=== PATIENT | male | born 1990 | race Caucasian/White ===

== ENCOUNTER 2019-04-03 15:29 | Emergency (ER) | payer MEDICAID ==
[~2019-04-03] VITALS: Ht 190.5 cm; Wt 84.0 kg
[~2019-04-03 15:29] MED LIST: BUPR100T11 PO; HYDR-826 PO; HYDR10TA4 PO; No meds per pt.
[2019-04-03 15:39] VITALS: BP 158/76
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
[2019-04-03] MEDS ORDERED: NEOSPORIN OINT. PKT 1 PACKET ONE (15:59)
[2019-04-03] MEDS ORDERED: DIPH,PERTUSS(ACELL),TET VAC/PF 0.5 ML IM-VACC ONE ×2 (15:59→16:00)
== END 2019-04-03 16:55 | disposition home or self-care (01) ==
LOC: ED 16:45
DX: S61.512A Laceration without foreign body of left wrist, initial encounter (principal); S60.221A Contusion of right hand, initial encounter; W26.0XXA Contact with knife, initial encounter; Y93.89 Activity, other specified; Y92.009 Unspecified place in unspecified non-institutional (private) residence as the place of occurrence of the external cause; Y99.8 Other external cause status
CPT/HCPCS: 90715; 99283

== ENCOUNTER 2019-04-06 03:23 | Emergency (ER) | payer MEDICAID ==
[~2019-04-06] VITALS: Ht 190.5 cm; Wt 85.0 kg
--- NOTE | 2019-04-06 03:27 | NUR ---
PT NOT IN LOBBY WHEN CALLED
[2019-04-06 03:31] VITALS: BP 119/71
== END 2019-04-06 04:37 | disposition home or self-care (01) ==
LOC: ED 04:30
DX: S61.401A Unspecified open wound of right hand, initial encounter (principal); X58.XXXA Exposure to other specified factors, initial encounter; Y93.89 Activity, other specified; Y92.89 Other specified places as the place of occurrence of the external cause; Y99.8 Other external cause status; F17.200 Nicotine dependence, unspecified, uncomplicated
CPT/HCPCS: 99283

== ENCOUNTER 2019-05-16 02:26 | Emergency (ER) | payer MEDICAID ==
[~2019-05-16] VITALS: Ht 188 cm; Wt 97.7 kg
[2019-05-16 02:29] VITALS: BP 138/78
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
--- NOTE | 2019-05-16 04:26 | NUR ---
Pt dc'd to self care. Pt alert and ambulatory. NAD. Education given on follow-up, home care and S/Sx to return. Pt ambulated out of ER.
== END 2019-05-16 04:28 | disposition home or self-care (01) ==
LOC: ED 04:22
DX: Z20.2 Contact with and (suspected) exposure to infections with a predominantly sexual mode of transmission (principal)
CPT/HCPCS: 36415; 86592; 86705; 86706; 86803; 87340; 87491; 87591; 87806; 99283; G0475

== ENCOUNTER 2019-05-22 01:24 | Emergency (ER) | payer MEDICAID ==
[~2019-05-22] VITALS: Ht 190.5 cm; Wt 84.9 kg
[2019-05-22 01:31] VITALS: BP 127/83
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
--- NOTE | 2019-05-22 01:50 | NUR ---
erp at bed side imaging will be taken
--- NOTE | 2019-05-22 02:52 | NUR ---
pt will be dc'd
--- NOTE | 2019-05-22 03:05 | NUR ---
dr rios was in rm given poc pt understood given dc instruction pt up ambulated to check out
== END 2019-05-22 03:15 | disposition home or self-care (01) ==
LOC: ED 01:52
DX: S93.492A Sprain of other ligament of left ankle, initial encounter (principal); F90.9 Attention-deficit hyperactivity disorder, unspecified type; F17.200 Nicotine dependence, unspecified, uncomplicated; Z72.9 Problem related to lifestyle, unspecified; X50.1XXA Overexertion from prolonged static or awkward postures, initial encounter; Y93.01 Activity, walking, marching and hiking; Y92.488 Other paved roadways as the place of occurrence of the external cause; Y99.8 Other external cause status
CPT/HCPCS: 99283

== ENCOUNTER 2020-06-18 10:41 | Emergency (ER) | payer MEDICAID ==
[~2020-06-18 10:41] MED LIST changes: +HYDR-2995 PO; -HYDR10TA4 PO
--- NOTE | 2020-06-18 10:54 | NUR ---
PER REGISTRATION/SECURITY. PATIENT CHECKED IN WITH REGISTRATION, USED RESTROOM, THEN GATHERED BELONGINGS AND WALKED OUT ER ENTRANCE/EXIT. ENGINEERING ANALYST MADE AWARE-TAKEN OUT OF SYSTEM LEFT WITHOUT BEING SEEN
== END 2020-06-18 10:57 | disposition left against medical advice (07) ==
LOC: ED 10:51
DX: R31.9 Hematuria, unspecified (principal); Z53.21 Procedure and treatment not carried out due to patient leaving prior to being seen by health care provider

== ENCOUNTER 2020-07-11 08:02 | Emergency (ER) | payer MEDICAID ==
[~2020-07-11] VITALS: Ht 190.5 cm; Wt 82.4 kg
[2020-07-11 08:09] VITALS: BP 114/81
[2020-07-11] MEDS ORDERED: NEOSPORIN OINT. PKT 1 PACKET ONE ×2 (09:14→09:15)
--- NOTE | 2020-07-11 09:21 | NUR ---
BILATERAL FEET CLEANED. ABX OINTMENT APPLIED TO OPEN BLISTERS AND COVERED WITH BANDAIDS. PT TOLERATED WELL. FOOD TRAY AND CLEAN SOCKS PROVIDED WELL.
== END 2020-07-11 09:48 | disposition home or self-care (01) ==
LOC: ED 09:45
DX: S91.331D Puncture wound without foreign body, right foot, subsequent encounter (principal); F31.9 Bipolar disorder, unspecified; F17.290 Nicotine dependence, other tobacco product, uncomplicated; Z72.9 Problem related to lifestyle, unspecified; Z59.0 Homelessness; X58.XXXD Exposure to other specified factors, subsequent encounter
CPT/HCPCS: 99281

== ENCOUNTER 2020-07-12 03:55 | Emergency (ER) | payer MEDICAID ==
[~2020-07-12] VITALS: Ht 190.5 cm; Wt 85.8 kg
[2020-07-12 03:56] VITALS: BP 141/89
--- NOTE | 2020-07-12 04:57 | NUR ---
PT REFUSING TO LEAVE ED AT TIME OF D/C. PT CONTINUALLY STATING "I NEED TO SEE MY DOCTOR AGAIN, I JUST REMEMBERED I HAVE A LOT OF OTHER THINGS GOING ON AND I NEED TO JUST SIT AND STAY HERE FOR LONGER. I AM NOT GETTING OUT OF THIS BED UNTIL THE DOCTOR COMES BACK AND I CAN TELL HIM ALL THE OTHER THINGS I HAVE GOING ON". PT GIVEN D/C INSTRUCTIONS AND PRESCRIPTION AND VERBALIZED UNDERSTANDING. AT THIS TIME PT STATES "OK FINE, I WILL JUST COME BACK IN 1 HOUR FOR THE SAME THING. DONT WORRY ILL CHECK RIGHT BACK INTO THIS ER, JUST LIKE THIS TIME." PT CONTINUES TO REFUSE TO LEAVE ED AND ROOM. AFTER THIS RN RN ATTEMPT TO D/C PT FROM ED, SECOND RN MOSES AT BEDSIDE TO ASSIST IN D/C. PT CONTINUES TO REFUSE AT THIS TIME. CALL PLACED TO SECURITY. SECURITY AT BEDSIDE TO ESCORT PT OUT OF DEPARTMENT. PT [id number]&[id number], AMBULATORY WITH STEADY GAIT.
== END 2020-07-12 05:09 | disposition home or self-care (01) ==
LOC: ED 04:45
DX: L73.9 Follicular disorder, unspecified (principal)
CPT/HCPCS: 99283

== ENCOUNTER 2020-07-13 22:07 | Emergency (ER) | payer MEDICAID ==
[~2020-07-13] VITALS: Ht 190.5 cm; Wt 83.8 kg
[2020-07-13 22:11] VITALS: BP 141/83
== END 2020-07-13 22:22 | disposition left against medical advice (07) ==
LOC: ED 22:18
DX: R68.89 Other general symptoms and signs (principal); Z53.21 Procedure and treatment not carried out due to patient leaving prior to being seen by health care provider